=== PATIENT | female | born 1955 | race Caucasian/White ===

== ENCOUNTER → 2024-05-19 | Outpatient (CLI) | payer MEDICARE ==
[2024-05-19 15:24] LABS: INR 0.9 (<1.2); Partial Thromboplastin Time 24.1 sec (22.0-30.0); Prothrombin Time 10.1 sec (10.0-12.5)
[2024-05-19 20:04] LABS: Basophils # (A) 0.05 X 10*3/uL (0.00-0.10); Basophils % (A) 0.9 %; Eosinophils # (A) 0.01 X 10*3/uL (0.04-0.35); Eosinophils % (A) 0.2 %; HCT 39.7 % (37.2-46.3); HGB 13.4 g/dL (12.0-15.0); Lymphocytes # (A) 1.62 X 10*3/uL (0.90-5.00); Lymphocytes % (A) 27.9 %; MCHC 33.8 g/dL (32.0-37.0); MCV 91.9 FL (80.0-97.0); Mean Platelet Volume 10.8 FL (9.5-12.2); Monocytes # (A) 0.43 X 10*3/uL (0.20-1.00); Monocytes % (A) 7.4 %; NRBC Per 100 WBC 0 X 10*3/uL (0.00-0.01); Neutrophils # (A) 3.67 X 10*3/uL (1.80-7.70); Neutrophils % (A) 63.3 %; Platelet Count 306 X 10*3/uL (140-440); RBC 4.32 X 10*6/uL (4.10-5.20); RDW 11.9 % (11.5-14.5)
[2024-05-19 20:09] LABS: Appearance,Urine Clear (Clear); Bilirubin,Urine Negative (Negative); Blood,Urine Negative (Negative); Color,Urine Yellow (Yellow); Ketones,Urine Negative (Negative); Nitrite,Urine Negative (Negative); PH, Urine 6.5; Specific Gravity,Urine 1.015 (1.001-1.030); Urobilinogen,Urine 0.2 E.U./DL
[2024-05-19 20:21] LABS: BUN/Creat Ratio 18.89 Ratio (12.00-20.00); Calcium 10.3 mg/dL (8.7-10.3); Carbon Dioxide 26.4 mmol/L (21.6-31.8); Chloride 97 mmol/L (96-109); Glucose 76 mg/dL (70-110); Potassium 3.5 mmol/L (3.5-5.5); Sodium 138 mmol/L (135-145)
== END | disposition home or self-care (01) ==
LOC: LABPAT 13:54
PROVIDERS: ATTEND Orthopaedic Surgery Orthopaedic Surgery of the Spine
DX: Z01.812 Encounter for preprocedural laboratory examination (principal); M48.02 Spinal stenosis, cervical region; Z22.322 Carrier or suspected carrier of Methicillin resistant Staphylococcus aureus
CPT/HCPCS: 36415; 80048; 81003; 85025; 85610; 85730; 87070

== ENCOUNTER 2024-06-03 05:43 | Inpatient (IN) | payer MEDICARE ==
[2024-05-27 14:55] VITALS: BMI 22.6
[~2024-06-03 05:43] MED LIST: ceFAZolin 2 GM in DEXTROSE 5% IN WATER 50 ML IVPB PRN
[2024-06-03] MEDS: IV FLUID CONTINUATION 1,000 ML IV ONE ×2 (06:43→06:44)
[2024-06-03] MEDS: LACTATED RINGERS 1,000 ML IV ONE ×3 (06:43→09:30)
[2024-06-03] MEDS: ONDANSETRON 4 MG/2 ML VIAL IVP ONE ×2 (06:54→12:16)
[2024-06-03] MEDS: SCOPOLAMINE 1 MG/72 HR PATCH TRANSDERM ONE (06:54)
[2024-06-03] MEDS: ceFAZolin 1,000 MG in SODIUM CHLORIDE 0.9% IRRIGATIO 1,000 ML IRRIGATION PRN (07:30)
[2024-06-03] MEDS: BUPIVACAINE (PF) 0.5% 30 ML VIAL SQ ONE ×3 (07:58→08:02)
[2024-06-03] MEDS: GELATIN SPONGE,ABSORB (LARGE) 1 EACH SPONGE MISCELLANE ONE (07:58)
[2024-06-03] MEDS: LIDOCAINE 2%-EPI 1:100,000 20 ML VIAL SQ ONE ×3 (07:59→08:02)
[2024-06-03] MEDS: THROMBIN (BOVINE) 5,000 UNIT VIAL TOPICAL ONE (08:02)
--- NOTE | 2024-06-03 08:36 | XR ---
EXAMINATION TYPE: XR cervical spine 1V DATE OF EXAM: 06/03/2024 COMPARISON: NONE CLINICAL INDICATION: Female, 68 years old with history of ANTERIOR CERVICAL FUSION CERVICAL STENOSIS; neck pain TECHNIQUE: Single portable crosstable lateral view of cervical spine is obtained intraoperatively. FINDINGS: Exam is for surgical planning and not for diagnostic purposes. Metallic pointer is localize d to the C4-C5 disc space level. There is grade 1 anterolisthesis C3 on C4. There is moderate to charles re disc space narrowing C4-C5 through C6-C7 levels. IMPRESSION: As above. [facility], , 06/03/2024 8:34 AM
[2024-06-03] MEDS ORDERED: LIDOCAINE 1% INJ 10MG/ML (20 ML MDV) ONE (09:25)
[2024-06-03] MEDS ORDERED: fentaNYL (PF) 50 MCG/ML 2 ML AMP ONE (09:25)
[2024-06-03] MEDS ORDERED: ROCURONIUM 10 MG/ML (5 ML VIAL) IV ONE (09:25)
[2024-06-03] MEDS ORDERED: PROPOFOL 10 MG/ML 20 ML VIAL IV ONE (09:25)
[2024-06-03] MEDS ORDERED: SUCCINYLCHOLINE CHLORIDE 200 MG/10 ML VIAL IV ONE (09:25)
[2024-06-03] MEDS ORDERED: DEXAMETHASONE SOD PHOSPHATE 10 MG/ML 1 ML VIAL ONE (09:25)
[2024-06-03] MEDS ORDERED: KETAMINE HCL IN 0.9 % NACL 50 MG/5 ML SYRINGE ONE (09:25)
[2024-06-03] MEDS ORDERED: GLYCOPYRROLATE 0.2 MG/ML 2 ML VIAL ONE (09:25)
[2024-06-03] MEDS ORDERED: PHENYLEPHRINE 10 MG/ML VIAL ONE (09:25)
[2024-06-03] MEDS ORDERED: MIDAZOLAM 2 MG/2 ML VIAL ONE (09:25)
[2024-06-03] MEDS ORDERED: NEOSTIGMINE 1 MG/ML 10 ML VIAL ONE (09:25)
[2024-06-03] MEDS ORDERED: HYDROmorphone 0.5 MG/0.5 ML SYRINGE IVP PRN (10:07)
[2024-06-03] MEDS ORDERED: HYDROmorphone 1 MG/ML 1 ML SYRINGE IVP PRN (10:07)
[2024-06-03] MEDS ORDERED: BENZOCAINE/MENTHOL LOZENG 1 EACH LOZENGE MUCOUS MEM PRN (10:07)
[2024-06-03] MEDS ORDERED: CYCLOBENZAPRINE 10 MG TAB PO PRN (10:07)
--- NOTE | 2024-06-03 10:10 | XR ---
EXAMINATION TYPE: XR cervical spine 1V DATE OF EXAM: 06/03/2024 COMPARISON: Intraoperative x-ray earlier today. CLINICAL INDICATION: Female, 68 years old with history of HARDWARE PLACEMENT; neck pain TECHNIQUE: Single portable crosstable lateral view of the cervical spine is obtained FINDINGS: Intraoperative image shows new anterior fusion plate running from C3 through C7 levels with artificial disc spacers. IMPRESSION: As above [facility], , 06/03/2024 10:08 AM
--- NOTE | 2024-06-03 10:13 | P.OP ---
Date of Procedure: 06/03/24 Preoperative Diagnosis: Severe cervical stenosis C3-4 C4-5 C5-6 C6-7, cervical kyphosis, hernia nucleus pulposus C3-4 C4-5 C5-6 C6-7, upper extremity myeloradiculopathy, cervical myelopathy, degenerative disc disease, upper extremity weakness Postoperative Diagnosis: Same Anesthesia: GETA Pathology: none sent Condition: stable Disposition: PACU Description of Procedure: BRIEF OPERATIVE NOTE Preoperative Diagnosis:Severe cervical stenosis C3-4 C4-5 C5-6 C6-7, cervical kyphosis, hernia nucleus pulposus C3-4 C4-5 C5-6 C6-7, upper extremity myeloradiculopathy, cervical myelopathy, degenerative disc disease, upper extremity weakness Postoperative Diagnosis:Severe cervical stenosis C3-4 C4-5 C5-6 C6-7, cervical kyphosis, hernia nucleus pulposus C3-4 C4-5 C5-6 C6-7, upper extremity myeloradiculopathy, cervical myelopathy, degenerative disc disease, upper extremity weakness Procedure: Anterior cervical decompression with discectomy and fusion C3-4 C4-5 C5-6 C6-7 Placement of interbody graft C3-4 C4-5 C5-6 C6-7 Application of anterior cervical plate [id number] Surgeon: Dr. Pan Cat Cracker Operator: Sanjiv CAVAZOS who is present throughout the entire the case persistence during positioning, dissection, exposure, visualization, and all crucial elements of the case as well as closure. Anesthesia: General anesthesia Estimated blood loss: Approximately 100 cc Complications: None apparent Components implanted: K2M Claude Lumpkin anterior cervical plate system with 12 mm screws and Vikos interbody allograft bone graft 1 cc of DBX bone putty Disposition: To recovery room in good stable condition. OPERATIVE INDICATIONS The patient has had long-standing issues in their neck and upper extremities. She has been having significant worsening over the past year and particularly in the past few months. She was found to have evidence of severe degenerative changes at her cervical spine and imaging showed severe stenosis at multiple levels. Her symptoms were consistent with early cervical myelopathy and she was having weakness at her upper extremities and radiculopathy which correlated well with her neck and upper extremity findings and symptoms. The patient has been through conservative treatment. She was having worsening despite conservative care. We discussed various treatment options including surgery, and the patient wishes to proceed with surgery We discussed the risk, patient's alternatives and benefits of surgery including but not limited to, risk of bleeding risk of infection, risk of need for further surgery, risk of decreased, loss of motion, muscle function, malunion nonunion, hardware failure, nerve damage, paralysis, heart attack, and . OPERATIVE SUMMARY After discussing all the risks, patient alternatives and benefits at length, the patient elected to proceed with surgical intervention, signed informed consent, and presented for their procedure. The patient was seen and examined in the preoperative holding area and the surgical site was marked. The patient was given antibiotics and brought to the operating room. The patient was positioned on the operating room table in a supine position being careful to pad any bony prominences and pressure points. The patient was sedated and intubated by anesthesia in standard fashion. Once the airway and C- spine were stabilized the patient's arms were padded and tucked at her side, with her shoulders gently taped. The head was placed in a donut pad with the neck in good neutral alignment and position. We were careful to maintain the patient's cervical spine and good neutral alignment and position throughout. The patient was prepped and draped in a normal standard fashion. An appropriate timeout and keystone protocol performed. We were able to proceed with the surgery. The local wound area was infiltrated with local anesthetic. An incision was made longitudinally approximately 2-1/2 cm over the appropriate levels from C3-C7. Dissection was taken down subcutaneously to the level of the platysma which was split in line with its fibers. Dissection was taken with a carotid approach, with the trachea and esophagus medial and the carotid sheath laterally. We dissected down to the anterior surface of the vertebral bodies. Intraoperative x-ray was taken which showed a marker at the appropriate level at C4-5. With the appropriate level positively confirmed, we were able to proceed with discectomy at the appropriate levels. All of the operative levels were exposed appropriately. The patient had all their twitches back, and there was no evidence of recurrent laryngeal issue. The wound was copiously irrigated and suctioned dry as had been done periodically throughout the case. At the appropriate level/levels, starting at C3-4 and then moving to C4-5 and then C5-6 and then C6-7 I established an annulotomy with an 11 blade scalpel. There was complete disc height loss essentially at each level. There were anterior osteophytes which were taken down as well at each level. A discectomy was performed with a combination of pituitary rongeurs, curettes, a high-speed bur, and Kerrison rongeurs. The posterior longitudinal ligament was taken down as were any posterior osteophytes. This gave good central and bilateral foraminal decompression. There is no evidence of any dural tear or leak. The endplates were prepared with a high-speed bur. With the endplates in good parallel position, I was able to size for the appropriate size interbody graft. The wound was irrigated and suctioned dry the graft was prepared and malleted into position. It had good alignment and position with the anterior surface flush with the anterior surface of the vertebral bodies. This was done similarly the appropriate levels C3-4 C4-5 C5-6 C6-7. With the grafts intact, I was able to measure and contour and appropriate sized plate. The plate was positioned at the midline over the appropriate levels atC3 -4 C4-5 C5-6 C6-7. Screw holes were established with a hand drill and drill guide. Screws were placed in good alignment and position with excellent bony purchase. They were seated under the locking device. The construct was checked and found to be stable. Intraoperative x-ray was taken which showed good alignment and position of the implants at the appropriate levels. There was no evidence of any dural tear or leak. Good hemostasis was maintained. The wound was copiously irrigated and suctioned dry as had been done periodically throughout the case. The platysma was closed with absorbable suture. The subcutaneous tissue was closed. The subcuticular tissue was closed with absorbable suture. The wound was cleaned and dried and dressed appropriately. A soft cervical collar was placed appropriately. The patient was woken up by anesthesia, extubated, transferred back gently to their hospital bed and brought to the recovery room in good stable condition. The patient will be admitted to the hospital for appropriate postoperative care, medical management and monitoring. We will continue to follow them closely about the postoperative course.
[2024-06-03] MEDS: HYDROmorphone 0.5 MG/0.5 ML SYRINGE IVP PRN (11:11)
[2024-06-03] MEDS: ONDANSETRON 4 MG/2 ML VIAL IVP PRN (11:54)
[2024-06-03] MEDS: DEXAMETHASONE SOD PHOSPHATE 4 MG/ML 1 ML VIAL IV ONE (12:15)
[2024-06-03] MEDS: LACTATED RINGERS 1,000 ML IV SCH (12:16)
[2024-06-03] MEDS: HYDROmorphone 2 MG/ML 1 ML SYRINGE IVP PRN (15:16)
[2024-06-03] MEDS: ceFAZolin 2 GM in DEXTROSE 5% IN WATER 50 ML IVPB SCH (18:03)
[2024-06-04] MEDS: ACETAMINOPHEN TAB 325 MG TAB PO PRN (00:01)
[2024-06-04] MEDS: HYDROcodone/APAP 5-325MG 1 EACH TAB PO PRN (04:11)
[2024-06-04] MEDS: LACTOBACILLUS ACIDOPHILUS/PECT 1 EACH CAPSULE PO SCH (09:06)
[2024-06-04] MEDS: TRIAMTERENE-HCTZ 37.5-25MG 1 EACH CAP PO SCH (09:16)
[2024-06-04] MEDS: amLODIPine 2.5 MG TAB PO SCH (09:16)
--- NOTE | 2024-06-04 10:36 | P.DS ---
Providers Date of admission: 06/03/24 05:43 Expected date of discharge: 06/04/24 Attending physician: Xenia Pan Primary care physician: Kirsty Macdonald MD - Discharge Diagnosis(es) (1) Cervical myelopathy Current Visit: Yes Status: Acute (2) Cervical cord myelomalacia Current Visit: Yes Status: Acute (3) Upper extremity weakness Current Visit: Yes Status: Acute (4) Cervical stenosis of spinal canal Current Visit: Yes Status: Acute (5) Status post cervical spinal fusion Current Visit: Yes Status: Acute (6) Degenerative cervical disc Current Visit: Yes Status: Acute (7) Kyphosis Current Visit: Yes Status: Acute (8) Cervicalgia Current Visit: Yes Status: Acute Hospital Course: This is a pleasant 68-year-old female who presented with a C3-4, C4-5, C5-6, and C6-7 herniated nucleus pulposus with severe spinal stenosis, cervical myelomalacia, cervical myelopathy, cervical upper extremity weakness, cervical kyphosis and cervical degenerative disc disease who failed outpatient conservative therapy. She admitted for a C3-4, C4-5, C5-6, and C6-7 anterior cervical decompression and fusion. The patient tolerated the procedure well and did well postoperatively. She has been able to eat without significant difficulty but does not have much of an ap petite. She is not currently complain of any significant pain with her upper extremities. Her pain is adequately controlled. She is utilizing a soft cervical collar for comfort and support as needed. She feels her pain is well- controlled and she feels she is ready for discharge today. Condition on day of discharge stable. Patient will be discharged home. Patient was cleared preoperatively for surgery by Dr. Macdonald. Patient currently denies any nausea, vomiting, fever, or chills. Patient is eating and voiding freely without difficulty. Patient may shower Optifoam dressing intact. Patient may remove Optifoam dressing in 3 days and shower without a dressing at that time. Patient should refrain from driving until at least after their first follow-up appointment in the office. Patient should avoid excessive neck flexion, extension, rotation, and lateral sidebending; no overhead lifting; no lifting greater than 10 pounds. MAPS has been reviewed today, 06/04/2024, with an Overall Overdose Risk Score of 030. An "Opiod Start Talking" Form has been signed and placed in the patient's chart. A prescription has been written for hydrocodone 5 mg / 325 mg, 1 tab, every 4 hours, as needed for acute pain, dispense #42. Prescription also written for baclofen, 10 mg, 1 tab, 3 times daily, as needed for muscle spasm, dispense #60. Prescription also written for Senokot-S, 1 tab, twice daily, as needed for constipation, dispense #60. Prescriptions are sent to the [facility] pharmacy located within [facility] per request of the patient. Physical Exam on day of discharge: Patient is awake, alert, and oriented 3 Vital signs stable Adequate chest excursion with deep inspiration and expiration Adequate range of motion of the cervical spine with adequate flexion, extension, and bilateral rotation Supervisor Cartography strength, thumb strength, interosseous strength, biceps strength, triceps strength, and shoulder strength positive sustained bilaterally Soft cervical collar intact Mild bruising and mild swelling around the anterior cervical surgical incision site Incision is clean, dry, and intact; no erythema, purulence, or signs of infection Optifoam dressing intact Procedures: C3-4, C4-5, C5-6, and C6-7 anterior cervical decompression and fusion Patient Condition at Discharge: Stable Plan - Discharge Summary Discharge Rx Participant: No New Discharge Prescriptions: New Baclofen 10 mg PO TID PRN #60 tab PRN Reason: Spasms HYDROcodone/APAP 5-325MG [[place] 5] 1 each PO Q4HR PRN #42 tab PRN Reason: Pain Sennosides-Docusate Sodium [Senokot-S] 1 tab PO BID PRN #60 tablet PRN Reason: Constipation No Action amLODIPine [Norvasc] 2.5 mg PO QAM L.acidoph,Paracasei, B.lactis [Probiotic] 1 cap PO DAILY Triamterene/Hydrochlorothiazid [Triamterene-Hctz 37.5-25 mg Cp] 1 each PO DAILY Acetaminophen Tab [Tylenol Tab] 1,000 mg PO Q4H PRN PRN Reason: Pain Discharge Medication List Acetaminophen Tab [Tylenol Tab] 1,000 mg PO Q4H PRN 05/27/24 [History] L.acidoph,Paracasei, B.lactis [Probiotic] 1 cap PO DAILY 05/27/24 [History] Triamterene/Hydrochlorothiazid [Triamterene-Hctz 37.5-25 mg Cp] 1 each PO DAILY 05/27/24 [History] amLODIPine [Norvasc] 2.5 mg PO QAM 05/27/24 [History] Baclofen 10 mg PO TID PRN #60 tab 06/04/24 [Rx] HYDROcodone/APAP 5-325MG [[place] 5] 1 each PO Q4HR PRN #42 tab 06/04/24 [Rx] Sennosides-Docusate Sodium [Senokot-S] 1 tab PO BID PRN #60 tablet 06/04/24 [Rx] Follow up Appointment(s)/Referral(s): Xenia Pan DO [Doctor of Osteopathic Medicine] - 06/18/24 9:45 am (with Pankaj) Kirsty Macdonald MD [Primary Care Provider] - 06/09/24 9:00 am (With Halie) Activity/Diet/Wound Care/Special Instructions: 1. Patient may shower with Optifoam dressing intact. 2. Patient may remove Optifoam dressing in 3 days and shower without a dressing at that time. 3. Patient may wear soft cervical collar for comfort support as needed. 4. Patient should refrain from driving until at least after their first follow- up appointment in the office. 5. Patient should avoid excessive cervical flexion, extension, and side bending; avoid overhead lifting; no lifting greater than 10 pounds 6. Take medications as prescribed 7. Patient should avoid anti-inflammatory medications over the next 6 weeks postoperatively 8. Do not soak in tub Discharge Disposition: HOME SELF-CARE
[2024-06-04] MEDS: ONDANSETRON 4 MG/2 ML VIAL IVP PRN (16:48)
[2024-06-04] MEDS ORDERED: diphenhydrAMINE 50 MG CAP PO PRN (16:53)
[2024-06-04] MEDS: diphenhydrAMINE 25 MG CAP PO PRN (19:06)
[2024-06-04] MEDS: methylPREDNISolone SOD SUCCI 40 MG/ML 1 ML VIAL IV SCH (22:16)
[2024-06-04 22:31] LABS: Basophils # (A) 0.01 10*3/uL (0.00-0.10); Basophils % (A) 0.1 %; HCT 26.5 % (37.2-46.3); HGB 9.1 g/dL (12.0-15.0); Lymphocytes # (A) 0.92 10*3/uL (0.90-5.00); Lymphocytes % (A) 10.8 %; MCH 30.8 pg (27.0-32.0); MCHC 34.3 g/dL (32.0-37.0); MCV 89.8 fL (80.0-97.0); Monocytes # (A) 0.48 10*3/uL (0.20-1.00); Monocytes % (A) 5.6 %; Neutrophils % (A) 83.1 %; Platelet Count 234 10*3/uL (140-440); RBC 2.95 10*6/uL (4.10-5.20); RDW 11.8 % (11.5-14.5); WBC 8.54 10*3/uL (4.50-10.00)
[2024-06-04 22:42] LABS: African American GFR (CKD) 88 (>60 ml/min/1.73 sqM); Anion Gap 7 mmol/L; Blood Urea Nitrogen 14 mg/dL (7-17); Calcium 8.9 mg/dL (8.4-10.2); Carbon Dioxide 30 mmol/L (22-30); Chloride 94 mmol/L (98-107); Glucose 87 mg/dL (74-99); Non-African American GFR(CKD) 76 (>60 ml/min/1.73 sqM); Potassium 2.9 mmol/L (3.5-5.1); Sodium 131 mmol/L (137-145)
[2024-06-04] MEDS ORDERED: Potassium Replacement Protocol 1 EACH MISC MISCELLANE PRN (23:12)
[2024-06-04] MEDS: diphenhydrAMINE 25 MG CAP PO SCH (23:36)
[2024-06-04] MEDS: POTASSIUM CHLORIDE 10 MEQ in WATER FOR INJECTION 1 100ML.BAG IVPB SCH (23:37)
[2024-06-05 07:44] LABS: Carbon Dioxide 29 mmol/L (22-30); Chloride 97 mmol/L (98-107); Glucose 111 mg/dL (74-99); Potassium 3.9 mmol/L (3.5-5.1); Sodium 134 mmol/L (137-145)
[2024-06-05 07:45] LABS: African American GFR (CKD) >90 (>60 ml/min/1.73 sqM); Anion Gap 8 mmol/L; Blood Urea Nitrogen 13 mg/dL (7-17); Calcium 9.4 mg/dL (8.4-10.2); Non-African American GFR(CKD) 88 (>60 ml/min/1.73 sqM)
--- NOTE | 2024-06-05 09:16 | P.DS ---
Providers Date of admission: 06/03/24 05:43 Expected date of discharge: 06/05/24 Attending physician: Xenia Pan Consults: 06/04/24 17:32 Consult Physician Urgent Consulting Provider: Gary Russell Consult Reason/Comments: allergic reaction/ post op nausea vomiting Do you want consulting provider notified?: Yes Primary care physician: Kirsty Macdonald MD - Discharge Diagnosis(es) (1) Cervical myelopathy Current Visit: Yes Status: Acute (2) Cervical cord myelomalacia Current Visit: Yes Status: Acute (3) Upper extremity weakness Current Visit: Yes Status: Acute (4) Cervical stenosis of spinal canal Current Visit: Yes Status: Acute (5) Status post cervical spinal fusion Current Visit: Yes Status: Acute (6) Degenerative cervical disc Current Visit: Yes Status: Acute (7) Kyphosis Current Visit: Yes Status: Acute (8) Cervicalgia Current Visit: Yes Status: Acute Hospital Course: This is a pleasant 68-year-old female who presented with a C3-4, C4-5, C5-6, and C6-7 herniated nucleus pulposus with severe spinal stenosis, cervical myelomalacia, cervical myelopathy, cervical upper extremity weakness, cervical kyphosis and cervical degenerative disc disease who failed outpatient conservative therapy. She admitted for a C3-4, C4-5, C5-6, and C6-7 anterior cervical decompression and fusion. The patient tolerated the procedure well and did well postoperatively. She has been able to eat without significant difficulty but does not have much of an appetite. She is not currently complain of any significant pain with her upper extremities. Her pain is adequately controlled. She is utilizing a soft cervical collar for comfort and support as needed. She feels her pain is well- controlled and she feels she is ready for discharge today. Condition on day of discharge stable. Patient will be discharged home. Yesterday, she is planning for discharge home but started to have projectile vomiting with significant swelling and erythema in her hands bilaterally. She has multiple significant allergies and feels she may have ate something that affected her. Since yesterday she states she has been taking Benadryl. She has been seen by medicine. Her symptoms have significantly improved. She feels she is 90% better than yesterday. She feels ready for discharge today. Patient was cleared preoperatively for surgery by Dr. Renae. Patient currently denies any nausea, vomiting, fever, or chills. Patient is eating and voiding freely without difficulty. Patient may shower Optifoam dressing intact. Patient may remove Optifoam dressing in 3 days and shower without a dressing at that time. Patient should refrain from driving until at least after their first follow-up appointment in the office. Patient should avoid excessive neck flexion, extension, rotation, and lateral sidebending; no overhead lifting; no lifting greater than 10 pounds. MAPS has been reviewed yesterday, 06/04/2024, with an Overall Overdose Risk Score of 030. An "Opiod Start Talking" Form has been signed and placed in the patient's chart. A prescription has been written for hydrocodone 5 mg / 325 mg, 1 tab, every 4 hours, as needed for acute pain, dispense #42. Prescription also written for baclofen, 10 mg, 1 tab, 3 times daily, as needed for muscle spasm, dispense #60. Prescription also written for Senokot-S, 1 tab, twice daily, as needed for constipation, dispense #60. Prescriptions are sent to the [facility] pharmacy located within [facility] per request of the patient. Medications have been picked up by her family. Physical Exam on day of discharge: Patient is awake, alert, and oriented 3 Vital signs stable Adequate chest excursion with deep inspiration and expiration Adequate range of motion of the cervical spine with adequate flexion, extension, and bilateral rotation Director Pharmaceutical strength, thumb strength, interosseous strength, biceps strength, triceps strength, and shoulder strength positive sustained bilaterally Soft cervical collar intact; collar is removed during physical examination Mild bruising and mild swelling around the anterior cervical surgical incision site Incision is clean, dry, and intact; no erythema, purulence, or signs of infection Optifoam dressing intact No significant swelling of the hands bilaterally Procedures: C3-4, C4-5, C5-6, and C6-7 anterior cervical decompression and fusion Patient Condition at Discharge: Stable Plan - Discharge Summary Discharge Rx Participant: No New Discharge Prescriptions: New Ondansetron [Zofran] 4 mg PO Q6HR PRN #30 tab PRN Reason: Nausea Baclofen 10 mg PO TID PRN #60 tab PRN Reason: Spasms HYDROcodone/APAP 5-325MG [[place] 5] 1 each PO Q4HR PRN #42 tab PRN Reason: Pain Sennosides-Docusate Sodium [Senokot-S] 1 tab PO BID PRN #60 tablet PRN Reason: Constipation No Action amLODIPine [Norvasc] 2.5 mg PO QAM L.acidoph,Paracasei, B.lactis [Probiotic] 1 cap PO DAILY Triamterene/Hydrochlorothiazid [Triamterene-Hctz 37.5-25 mg Cp] 1 each PO DAILY Acetaminophen Tab [Tylenol Tab] 1,000 mg PO Q4H PRN PRN Reason: Pain Discharge Medication List Acetaminophen Tab [Tylenol Tab] 1,000 mg PO Q4H PRN 05/27/24 [History] L.acidoph,Paracasei, B.lactis [Probiotic] 1 cap PO DAILY 05/27/24 [History] Triamterene/Hydrochlorothiazid [Triamterene-Hctz 37.5-25 mg Cp] 1 each PO DAILY 05/27/24 [History] amLODIPine [Norvasc] 2.5 mg PO QAM 05/27/24 [History] Baclofen 10 mg PO TID PRN #60 tab 06/04/24 [Rx] HYDROcodone/APAP 5-325MG [[place] 5] 1 each PO Q4HR PRN #42 tab 06/04/24 [Rx] Ondansetron [Zofran] 4 mg PO Q6HR PRN #30 tab 06/04/24 [Rx] Sennosides-Docusate Sodium [Senokot-S] 1 tab PO BID PRN #60 tablet 06/04/24 [Rx] Follow up Appointment(s)/Referral(s): Xenia Pan DO [Doctor of Osteopathic Medicine] - 06/18/24 9:45 am (with Pankaj) Kirsty Macdonald MD [Primary Care Provider] - 06/09/24 9:00 am (With Halie) Patient Instructions/Handouts: *Surgery [facility] - ([facility]) Cervical Surgery Discharge Instructions Activity/Diet/Wound Care/Special Instructions: 1. Patient may shower with Optifoam dressing intact. 2. Patient may remove Optifoam dressing in 3 days and shower without a dressing at that time. 3. Patient may wear soft cervical collar for comfort support as needed. 4. Patient should refrain from driving until at least after their first follow- up appointment in the office. 5. Patient should avoid excessive cervical flexion, extension, and side bending; avoid overhead lifting; no lifting greater than 10 pounds 6. Take medications as prescribed 7. Patient should avoid anti-inflammatory medications over the next 6 weeks postoperatively 8. Do not soak in tub Discharge Disposition: HOME SELF-CARE
[2024-06-05 09:17] VITALS: BP 122/79; RESP 18; TEMP 97.8
[2024-06-05 09:18] VITALS: PULSE 79
[2024-06-05] MEDS: FAMOTIDINE 20 MG TAB PO SCH (10:25)
== END 2024-06-05 15:46 | disposition home or self-care (01) | DRG 472 ==
LOC: 2ORMAIN 05:43 → EDSTATUS 07:30 → 4SSUR 11:06
PROVIDERS: ADMIT Orthopaedic Surgery Orthopaedic Surgery of the Spine; ATTEND Orthopaedic Surgery Orthopaedic Surgery of the Spine
PROC: 0RB30ZZ Excision of Cervical Vertebral Disc, Open Approach (ICD-10-PCS; 2024-06-03)
PROC: 01N10ZZ Release Cervical Nerve, Open Approach (ICD-10-PCS; 2024-06-03)
PROC: 4A11X4G Monitoring of Peripheral Nervous Electrical Activity, Intraoperative, External Approach (ICD-10-PCS; 2024-06-03)
PROC: 0RG20A0 Fusion of 2 or more Cervical Vertebral Joints with Interbody Fusion Device, Anterior Approach, Anterior Column, Open Approach (ICD-10-PCS; principal; 2024-06-03 07:30)
DX: M48.02 Spinal stenosis, cervical region (principal); M50.023 Cervical disc disorder at C6-C7 level with myelopathy; M50.123 Cervical disc disorder at C6-C7 level with radiculopathy; I73.00 Raynaud's syndrome without gangrene; M40.292 Other kyphosis, cervical region; M25.78 Osteophyte, vertebrae; Z88.5 Allergy status to narcotic agent; Z88.0 Allergy status to penicillin; Z91.012 Allergy to eggs; Z91.011 Allergy to milk products
CPT/HCPCS: 72020; 80048; 85025; 86850; 86900; 86901